=== PATIENT | male | born 2000 | race Caucasian/White ===

== ENCOUNTER 2018-03-06 13:58 | Emergency (ER) | payer OTHER ==
[~2018-03-06] VITALS: Ht 177.8 cm; Wt 59.0 kg
[2018-03-06] MEDS ORDERED: IBUPROFEN 600600 M1 PO (16:12)
[2018-03-06] MEDS ORDERED: ROBAXIN 750 MG750 M1 PO (16:12)
[2018-03-06 16:25] VITALS: BP 137/81
== END 2018-03-06 16:26 | disposition home or self-care (01) ==
LOC: M.ERS 13:58
DX: S16.1XXA Strain of muscle, fascia and tendon at neck level, initial encounter (principal); R51 Headache; M25.551 Pain in right hip; M79.642 Pain in left hand; R10.2 Pelvic and perineal pain; V49.49XA Driver injured in collision with other motor vehicles in traffic accident, initial encounter; Y93.89 Activity, other specified; Y92.89 Other specified places as the place of occurrence of the external cause; Y99.8 Other external cause status